=== PATIENT | female | born 1950 ===

== ENCOUNTER 2017-08-06 13:15 | Emergency (ER) | payer MEDICARE ==
[2017-08-06 13:28] VITALS: BMI 34.0
[2017-08-06 13:29] VITALS: RESP 18; TEMP 98.1
--- NOTE | 2017-08-06 13:46 | ED PDOC ---
Arrival/HPI - General Historian: Patient - History of Present Illness Time/Duration: < month (2 weeks ) Symptom Onset: Gradual Symptom Course: Worsening Quality: Aching Severity Level: 6 Activities at Onset: Light Context: Sitting, Standing, Walking - General Chief Complaint: Back Pain Time Seen by Provider: 08/06/17 13:21 - History of Present Illness Narrative History of Present Illness (Text): 08/06/17 14:20 This is a 66Y F with no PMH here for back pain x 2 weeks. She reports the pain is in her bilateral low back/sacral region that radiates down to her legs. The right side is worse than the left. She also gets tingling to the back of her R leg. She denies any trauma, urinary retention/incontinence or bowel incontinence. She is able to ambulate, but the pain is worse with ambulation and better with rest. She was in the [place] for 2 months and was very active during that time. She came back from her trip 3 weeks ago. She used a medication [facility] for her pain which is described as an opiate. It did not relieve her pain. PMD: Dr. Saini ([facility]) Past Medical History - Provider Review Nursing Documentation Reviewed: Yes - Travel History Have you recently traveled outside [place] w/in the past 3 mons?: Yes If Yes, travel location?: [place] - Past History Past History: No Previous - Infectious Disease Hx of Infectious Diseases: None - Reproductive Menopause: Yes - Past Medical History Past Medical History: No Previous - Cardiac Hx Cardiac Disorders: No - Pulmonary Hx Respiratory Disorders: No - Neurological Hx Neurological Disorder: No - HEENT Hx HEENT Disorder: Yes - Renal Hx Renal Disorder: No - Endocrine/Metabolic Hx Endocrine Disorders: No - Hematological/Oncological Hx Blood Disorders: No - Integumentary Hx Dermatological Disorder: No - Musculoskeletal/Rheumatological Hx Musculoskeletal Disorders: No - Gastrointestinal Hx Gastrointestinal Disorders: No - Genitourinary/Gynecological Hx Genitourinary Disorders: No - Psychiatric Hx Psychophysiologic Disorder: No Hx Substance Use: No - Anesthesia Hx Anesthesia: No Family/Social History - Physician Review Nursing Documentation Reviewed: Yes Family/Social History: No Known Family HX Smoking Status: Never Smoked Hx Alcohol Use: No Hx Substance Use: No Allergies/Home Meds Allergies/Adverse Reactions: Allergies No Known Allergies Allergy (Verified 11/04/14 13:28) Review of Systems - Physician Review All systems were reviewed & negative as marked: Yes - Review of Systems Constitutional: Normal. absent: Fatigue Respiratory: Normal. absent: SOB Cardiovascular: Normal. absent: Chest Pain Gastrointestinal: Normal. absent: Abdominal Pain, Diarrhea, Nausea Genitourinary Female: Normal. absent: Dysuria, Frequency Musculoskeletal: Arthralgias, Back Pain. absent: Neck Pain, Joint Swelling Skin: Normal. absent: Rash, Pruritis, Skin Lesions Neurological: Normal. absent: Headache, Dizziness, Gait Changes Physical Exam Vital Signs Reviewed: Yes Temperature: Afebrile Blood Pressure: Hypertensive Pulse: Regular Respiratory Rate: Normal Appearance: Positive for: Well-Appearing, Non-Toxic, Comfortable Pain Distress: None Mental Status: Positive for: Alert and Oriented X 3 - Systems Exam Head: Present: Atraumatic, Normocephalic Mouth: Present: Moist Mucous Membranes Neck: Present: Normal Range of Motion Respiratory/Chest: Present: Clear to Auscultation, Good Air Exchange. No: Respiratory Distress, Accessory Muscle Use Cardiovascular: Present: Regular Rate and Rhythm, Normal S1, S2. No: Murmurs Abdomen: Present: Normal Bowel Sounds. No: Tenderness, Distention, Peritoneal Signs Back: Present: Normal Inspection, Paraspinal Tenderness. No: CVA Tenderness, Pain with Leg Raise Upper Extremity: Present: Normal Inspection. No: Cyanosis, Edema Lower Extremity: Present: Normal Inspection, Other (R calf slightly larger than L ). No: Edema Neurological: Present: GCS=15, CN II-XII Intact, Speech Normal, Motor Func Grossly Intact, Normal Sensory Function Skin: Present: Warm, Dry, Normal Color. No: Rashes Psychiatric: Present: Alert, Oriented x 3, Normal Insight, Normal Concentration Vital Signs Temp Pulse Resp BP Pulse Ox 08/06/17 15:15 75 18 145/80 99 08/06/17 13:29 98.1 F 79 18 148/75 98 Medical Decision Making Re-evaluation Time: 14:39 Reassessment Condition: Improved ED Course and Treatment: 08/06/17 14:19 Impression: This is a 66Y F with no PMH here for back pain x 2 weeks Differential Diagnosis included but are not limited to: sciatica v. muscle strain, r/o R DVT Plan: -- Toradol -- R leg venous U/S -- Reassess and disposition Prior Visits: Notes and results from previous visits were reviewed. Progress Notes: Preliminary U/S was negative for DVT. On re-evaluation, patient feels better and is in no acute distress. I have discussed the results and plan with the patient, who expresses understanding. Patient in agreement with plan to be discharged home. Patient is stable for discharge. Patient was instructed to follow up with physician or return if symptoms worsen or new concerning symptoms arise. (Claire Ernst) Seen and examined with resident. 66 y/o F p/w R sided lower back pain that radiates down R leg. On exam, no midline tenderness of back, no numbness of legs. R lower leg mildly more swollen than L. (Kelvin Call) - RAD Interpretation Radiology Orders: 08/06/17 13:57 DUPLEX LOWER EXTRM VEIN RIGHT [US] Stat - Medication Orders Current Medication Orders: Discontinued Medications Ketorolac Tromethamine (Toradol) 60 mg IM STAT STA Stop: 08/06/17 13:46 Last Admin: 08/06/17 14:02 Dose: 60 mg Ketorolac Tromethamine (Toradol) 30 mg IM STAT STA Stop: 08/06/17 13:58 Last Admin: 08/06/17 14:03 Dose: Disposition/Present on Arrival - Present on Arrival Any Indicators Present on Arrival: No History of DVT/PE: No History of Uncontrolled Diabetes: No Urinary Catheter: No History of Decub. Ulcer: No History Surgical Site Infection Following: None - Disposition Have Diagnosis and Disposition been Completed?: Yes Disposition Time: 14:39 Patient Plan: Discharge - Disposition Diagnosis: Muscle strain Disposition: HOME/ ROUTINE Condition: GOOD Print Language: CONGOLESE Additional Instructions: Ms. Navarro, thank you for letting us take care of you today. Your provider was Dr. Ernst. You were treated for back pain. The emergency medical care you received today was directed at your acute symptoms. If you were prescribed any medication, please fill it and take as directed. It may take several days for your symptoms to resolve. Return to the Emergency Department if your symptoms worsen, do not improve, or if you have any other problems. Please contact your doctor or call one of the physicians/clinics you have been referred to that are listed on the Patient Visit Information form that is included in your discharge packet. Bring any paperwork you were given at discharge with you along with any medications you are taking to your follow up visit. Our treatment cannot replace ongoing medical care by a primary care provider (PCP) outside of the emergency department. Thank you for allowing the [facility] team to be part of your care today. Prescriptions: Naproxen 500 mg PO Q12 PRN #30 tab PRN Reason: Pain, Moderate (4-7) Referrals: Daniel Saini [Primary Care Provider] - Follow up with primary Forms: [employer] ([place])
[2017-08-06 15:15] VITALS: BP 145/80; PULSE 75; O2SAT 99
--- NOTE | 2017-08-06 16:33 | US ---
PROCEDURE: Right lower extremity venous US HISTORY: Leg pain and swelling. Evaluate for DVT. PHYSICIAN(S): Carroll Kent M.D. TECHNIQUE: Duplex sonography and color-flow Doppler with graded compression were used to evaluate the deep venous system of the right lower extremity. FINDINGS: The visualized deep venous system of the right lower extremity is sonographically normal and compressible. Normal waveforms and augmentation are seen. There is no sonographic evidence for deep venous thrombosis in the visualized segments of the right lower extremity. IMPRESSION: 1. No sonographic evidence for deep venous thrombosis in the visualized segments of the right lower extremity.
== END 2017-08-06 15:00 | disposition home or self-care (01) ==
LOC: ED 13:15
DX: S39.012A Strain of muscle, fascia and tendon of lower back, initial encounter (principal); X58.XXXA Exposure to other specified factors, initial encounter
CPT/HCPCS: 93971; 96372; 99284; J1885

== ENCOUNTER 2017-08-28 19:44 | Emergency (ER) | payer OTHER, MEDICARE ==
[2017-08-28 19:45] VITALS: BMI 34.0
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
[2017-08-28 20:42] VITALS: BP 158/71; PULSE 62; RESP 16; TEMP 98.2; O2SAT 97
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
--- NOTE | 2017-08-29 23:03 | CARD ---
APPROVED REPORT EKG Measurement Heart [id number] FL [id number] <Conclusion> Normal sinus rhythm with sinus arrhythmia Normal ECG
== END 2017-08-29 00:10 | disposition home or self-care (01) ==
LOC: ED 19:44
DX: S20.211A Contusion of right front wall of thorax, initial encounter (principal); V49.49XA Driver injured in collision with other motor vehicles in traffic accident, initial encounter; Y92.410 Unspecified street and highway as the place of occurrence of the external cause

== ENCOUNTER 2019-02-11 09:00 | Outpatient (CLI) | payer MEDICARE | END 2019-02-11 09:01 | disposition home or self-care (01) | LOC: LAB 09:00 ==